=== PATIENT | male | born 1980 | race Caucasian/White ===

== ENCOUNTER 2021-12-10 19:28 | Emergency (ER) | payer OTHER, SELFPAY ==
[2021-12-10 19:30] VITALS: BP 125/79; PULSE 93; RESP 17; TEMP 36.6; O2SAT 100; BMI 25.0
--- NOTE | 2021-12-10 19:48 | PC.NURSE ---
Dr. Hsu at bedside w staff
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
[2021-12-10 20:33] LABS: Basophils # 0.1 K/mm3 (0-0.2); Basophils % 1.1 % (0.1-2.0); Eosinophils # 0.1 K/mm3 (0.0-0.4); Eosinophils % 1.6 % (0.1-12.0); Hematocrit 44.5 % (42.0-52.0); Hemoglobin 14.7 g/dL (14.1-18.0); Lymphocytes # 1.7 K/mm3 (0.7-4.5); Mean Corpuscular HGB Conc 33.1 g/dL (31.8-35.4); Mean Corpuscular Hemoglobin 29.9 pg (27.0-31.2); Mean Corpuscular Volume 90.3 fl (80-94); Mean Platelet Volume 7.8 fl (7.4-10.4); Monocytes # 0.4 K/mm3 (0.1-1.0); Monocytes % 6.3 % (1.7-9.3); Neutrophils # 4.5 K/mm3 (1.8-7.8); Platelet Count 314 K/mm3 (142-424); Red Blood Count 4.93 M/mm3 (4.60-6.20); Red Cell Distribution Width 13.2 % (11.5-17.5); White Blood Count 6.8 K/mm3 (4.8-10.8)
[2021-12-10 20:39] LABS: Chloride 102 mmol/L (98-107); Potassium 4.1 mmoL/L (3.5-5.1); Sodium 145 mmol/L (136-145)
[2021-12-10 20:42] LABS: Anion Gap 15.1 mEq/L (5-15); Blood Urea Nitrogen 14 mg/dl (9-20); Carbon Dioxide 32 mmol/L (22.0-30.0); Creatinine Clearance Estimated 95 mL/min (50-200); Estimated Glomerular Filt Rate 82 ml/min (>60); GFR (African American) 99 ML/MIN (>60)
[2021-12-10 20:43] LABS: Glucose 92 mg/dl (74-100)
--- NOTE | 2021-12-10 21:26 | PC.NURSE ---
C-spine cleaned via CT. per , may remove c-collar. New order for Tordol 30 mg IVP 1x, order placed.
--- NOTE | 2021-12-10 21:27 | PC.NURSE ---
C-COLLAR REMOVED PER MD REQUEST.
[2021-12-10 21:34] VITALS: BP 112/72; PULSE 75; RESP 20; TEMP 36.7; O2SAT 99
== END 2021-12-10 21:52 | disposition home or self-care (01) ==
PROVIDERS: Emergency Provider Emergency Medicine
DX: M54.2 Cervicalgia (principal); M54.50 Low back pain, unspecified; V49.9XXA Car occupant (driver) (passenger) injured in unspecified traffic accident, initial encounter
CPT/HCPCS: 36415; 70450; 71045; 72125; 72128; 72131; 72170; 74177; 80048; 85025; 96374; 99285; Q9967